=== PATIENT | female | born 1960 | race Caucasian/White ===

== ENCOUNTER 2022-03-03 17:58 | Emergency (ER) | payer BC ==
[2022-03-03 19:31] LABS: CORONAVIRUS COVID-19 NAA POSITIVE (NEGATIVE); RESPIRATORY SYNCYTIAL VIR NAA NEGATIVE (NEGATIVE)
[2022-03-03] MEDS ORDERED: Nirmatrelvir/Ritonavir 300 MG/100 MG Dose Pack PO SCH (20:00)
== END 2022-03-03 20:12 | disposition home or self-care (01) ==
LOC: VM.ED 17:58
DX: U07.1 COVID-19 (principal)
CPT/HCPCS: 0241U; 99283; 99284; A9270-GY